=== PATIENT | female | born 1985 | race African-American/Black ===

== ENCOUNTER 2017-04-12 14:58 | Emergency (ER) | payer MEDICAID ==
[~2017-04-12] VITALS: Ht 157.5 cm; Wt 49.9 kg
[2017-04-12 15:06] VITALS: BP 120/75
== END 2017-04-12 16:13 | disposition home or self-care (01) ==
LOC: ER 14:59
DX: J06.9 Acute upper respiratory infection, unspecified (principal); J32.9 Chronic sinusitis, unspecified; Z39.1 Encounter for care and examination of lactating mother; Z88.8 Allergy status to other drugs, medicaments and biological substances
CPT/HCPCS: A4606; Z7610

== ENCOUNTER → 2018-11-05 | Emergency (ER) | payer MEDICAID ==
[~2018-11-05] VITALS: Ht 162.6 cm; Wt 59.0 kg
[2018-11-05 02:17] VITALS: BP 132/68
--- NOTE | 2018-11-05 06:38 | NUR ---
[facility] ([place] - [phone]
== END | disposition home or self-care (01) ==
LOC: ER 02:21
DX: H10.89 Other conjunctivitis (principal); F41.9 Anxiety disorder, unspecified; F32.9 Major depressive disorder, single episode, unspecified; Z98.890 Other specified postprocedural states; Z91.018 Allergy to other foods